=== PATIENT | male | born 2000 | race Caucasian/White ===

== ENCOUNTER 2020-05-03 15:17 | Outpatient (REF) | payer OTHER, SELFPAY ==
[2020-05-03 18:31] LABS: COVID-19 Test Negative (Negative)
== END 2020-05-03 15:18 | disposition home or self-care (01) ==
LOC: HO.LAB 15:17
PROVIDERS: Visit Provider Internal Medicine
DX: Z20.828 Contact with and (suspected) exposure to other viral communicable diseases (principal)
CPT/HCPCS: 87635; C9803

== ENCOUNTER 2020-06-01 09:08 | Outpatient (REF) | payer OTHER, SELFPAY ==
[2020-06-01 09:27] LABS: COVID-19 Test Negative (Negative)
== END 2020-06-01 09:09 | disposition home or self-care (01) ==
LOC: HO.EMPCOV 09:08
PROVIDERS: Visit Provider Internal Medicine
DX: Z20.822 Contact with and (suspected) exposure to COVID-19 (principal)
CPT/HCPCS: 36415; 87635; C9803

== ENCOUNTER 2020-06-15 10:43 | Outpatient (REF) | payer OTHER, SELFPAY ==
[2020-06-15 11:02] LABS: COVID-19 Test Negative (Negative)
== END 2020-06-15 10:44 | disposition home or self-care (01) ==
LOC: HO.LAB 10:43
PROVIDERS: Visit Provider Internal Medicine
DX: Z20.822 Contact with and (suspected) exposure to COVID-19 (principal)
CPT/HCPCS: 36415; 87635; C9803

== ENCOUNTER 2021-03-02 08:00 | Outpatient (REF) | payer BC, SELFPAY ==
[2021-03-02 08:26] LABS: COVID-19 Test Negative (Negative)
== END 2021-03-02 08:01 | disposition home or self-care (01) ==
LOC: HO.LAB 08:00
PROVIDERS: Visit Provider Internal Medicine
DX: Z20.822 Contact with and (suspected) exposure to COVID-19 (principal)
CPT/HCPCS: 36415; 87635; C9803

== ENCOUNTER 2021-03-04 08:01 | Outpatient (REF) | payer BC, SELFPAY ==
[2021-03-04 08:22] LABS: COVID-19 Test Negative (Negative)
== END 2021-03-04 08:02 | disposition home or self-care (01) ==
LOC: HO.LAB 08:01
PROVIDERS: Visit Provider Internal Medicine
DX: Z20.822 Contact with and (suspected) exposure to COVID-19 (principal)
CPT/HCPCS: 36415; 87635; C9803

== ENCOUNTER 2021-04-26 08:15 | Outpatient (REF) | payer BC, SELFPAY ==
[2021-04-26 08:56] LABS: COVID-19 Test Negative (Negative)
== END 2021-04-26 08:16 | disposition home or self-care (01) ==
LOC: HO.LAB 08:15
PROVIDERS: Visit Provider Internal Medicine
DX: Z20.822 Contact with and (suspected) exposure to COVID-19 (principal)
CPT/HCPCS: 36415; 87635; C9803